=== PATIENT | male | born 1985 | race Two or more races ===

== ENCOUNTER 2018-03-25 21:16 | Emergency (ER) | payer SELFPAY ==
--- NOTE | 2018-03-25 21:49 | EDPHY ---
H & P Stated Complaint: Testicular pain, no troubles urinating, denies unprotected sex Source: Patient Exam Limitations: No limitations - Personal History Current Tetanus Diphtheria and Acellular Pertussis (TDAP): Yes Tetanus Vaccine Date: 2014 - Medical/Surgical History Hx Asthma: No Hx Chronic Respiratory Disease: No Hx Diabetes: No Hx Cardiac Disease: No Hx Renal Disease: No Hx Cirrhosis: No Hx Alcoholism: No Hx HIV/AIDS: No Hx Splenectomy or Spleen Trauma: No Other PMH: Diabetes - Social History Smoking Status: Never smoked Time Seen by Provider: 03/25/18 21:47 HPI/ROS: HPI: This is a 33-year-old male who presents with Chief Complaint: Testicular pain, no troubles urinating, denies unprotected sex Location: Bilateral testicle Quality: Pain Duration: Several days Signs and Symptoms: no fever, no nausea, no vomiting, no hematemesis, no blood in stool, no abdominal bloating, no diarrhea, no back pain, no urinary symptoms , no testicular masses, no indigestion, no chest pain, no shortness of breath Timing: Acute, waxes and wanes Severity: Mild Context: Patient is in a monogamous relationship presents with intermittent bilateral testicle pain that occurs throughout the day. Reports that the pain alternates between the right and left testicle. He denies any injury, trauma. He is urinating without any difficulties. He denies any hematuria, burning with urination. He does report that there is some testicular swelling at the end of the day. He denies unprotected sex or concern for sexually transmitted diseases. No history of hernias. Modifying Factors: None Comment: ROS: see HPI Constitutional: No fever, no chills, no weight loss Eyes: No blurred vision Respiratory: No shortness of breath, no cough Cardiovascular: No chest pain, no palpitations Gastrointestinal: No nausea, no vomiting, no diarrhea, no hematemesis, no blood in stool Genitourinary: No dysuria, no blood in urine Extremities: No myalgias, no edema Neurologic: No weakness, no numbness Skin: No rashes, no petechiae Hematologic: No bruising, no bleeding MEDICAL/SURGICAL/SOCIAL HISTORY: Medical history: Type 2 diabetes mellitus Surgical history: Denies Social history: Never smoked. Family history noncontributory. CONSTITUTIONAL: Over white extremely polite and cooperative male, awake and alert, no obvious distress HEENT: Atraumatic and normocephalic, PERRL, EOMI. Nares patent; no rhinorrhea; no nasal mucosal edema. Tympanic membranes clear. Oropharynx clear, no exudate and moist pink mucosa. Airway patent. No lymphadenopathy. No meningismus. Cardiovascular: Normal S1/S2, tachycardia, regular rhythm, without murmur rub or gallop. PULMONARY/CHEST: Symmetrical and nontender. Clear to auscultation bilaterally. Good air movement. No accessory muscle usage. ABDOMEN: Soft, nondistended, nontender, no rebound, no guarding, no peritoneal signs, no masses or organomegaly. No CVAT. Male : uncircumcised penis, bilateral descended testes, no testicular swelling , no testicular masses, no penile discharge, no lesions, negative Prehn's sign. EXTREMITIES: 2/2 pulses, strength 5/5, no deformities, no clubbing, no cyanosis or edema. NEUROLOGICAL: no focal neuro deficits. GCS 15. SKIN: Warm and dry, no erythema. no rash. Good capillary refill. (Camryn Diop) Constitutional: Initial Vital Signs Temperature (C) 36.7 C 03/25/18 21:20 Heart Rate 106 H 03/25/18 21:20 Respiratory Rate 19 03/25/18 21:20 Blood Pressure 142/101 H 03/25/18 21:20 O2 Sat (%) 97 03/25/18 21:20 O2 Delivery Mode Room Air Allergies/Adverse Reactions: No Known Allergies Allergy (Unverified 03/25/18 21:20) Home Medications: Medication Instructions Recorded Doxycycline Hyclate 100 mg PO BID #20 tablet 03/25/18 Metformin HCl 03/25/18 Medical Decision Making ED Course/Re-evaluation: Vital signs reviewed upon arrival in show mild tachycardia. No systemic signs. Urinalysis and testicular ultrasound ordered. 2244: Urinalysis is completely unremarkable. Called by Radiology who advised that testicular ultrasound shows Mild increased vascularity of the right testicle when compared to the left suggestive of mild orchitis. Patient was given IM 250 mg of ceftriaxone as well as a prepack of doxycycline and a prescription for 10 days. No signs of Selin gangrene/prostatitis/urinary tract infection/testicular torsion. This patient was seen under the supervision of my secondary supervising physician. I evaluated care for this patient independently. Discussed this patient with Dr. Bonilla. (Camryn Diop) I did not see this patient while he was in the emergency department. However his care was discussed with the PA while the patient was in the department. I agree with treatment plan and management (IreneBrock Robles) Differential Diagnosis: Testicular pain including but not limited to epididymitis, orchitis, referred pain from kidney stone, inguinal hernia, and torsion of the testicle. (Camryn Diop) - Data Points Medications Given: Discontinued Medications Ceftriaxone Sodium (Rocephin Im Syringe) 250 mg IM EDNOW ONE PRN Reason: Protocol Stop: 03/25/18 23:14 Last Admin: 03/25/18 23:46 Dose: 250 mg Doxycycline Hyclate (Vibramycin 100 Mg Prepack#2) 1 btl TAKEHOME EDNOW ONE Stop: 03/25/18 23:15 Last Admin: 03/25/18 23:46 Dose: 1 btl Departure - Departure Disposition: Home, Routine, Self-Care Clinical Impression: Orchitis of right testicle Condition: Good Instructions: Orchitis (ED) Additional Instructions: Please take Doxycycline twice a day for the next 10 days. Do not skip a dose. Do not have sexual intercourse for 14 days. You may apply ice packs to your scrotal area several times per day to relieve discomfort. Take Tylenol 650 mg every 4 hours and/or Ibuprofen 600 mg every 8 hours with food as needed for pain. Please follow-up with Urology in 1 week. Return to the ER immediately if you experience new, continued or worsening abdominal pain, fevers/chills, inability to tolerate oral intake, new pain, or any other symptoms that concern you. Referrals: [facility],. [Clinic] - As per Instructions Mateo Castro MD [Medical Doctor] - As per Instructions Prescriptions: Doxycycline Hyclate 100 mg PO BID #20 tablet
[2018-03-25] MEDS ORDERED: DOXYCYCLINE 100 MG PREPACK#2 BTL TAKEHOME ONE (23:14)
[2018-03-26 06:09] VITALS: BP 134/75
== END 2018-03-25 23:48 | disposition home or self-care (01) ==
DX: N45.2 Orchitis (principal); E11.9 Type 2 diabetes mellitus without complications; Z79.84 Long term (current) use of oral hypoglycemic drugs
CPT/HCPCS: J0696

== ENCOUNTER 2018-10-05 18:34 | Emergency (ER) | payer OTHER ==
--- NOTE | 2018-10-05 19:12 | EDPHY ---
H & P Stated Complaint: Laceration to left thumb Time Seen by Provider: 10/05/18 18:59 HPI/ROS: CHIEF COMPLAINT: Laceration HISTORY OF PRESENT ILLNESS: Patient is a 33-year-old man who comes to the emergency depart with laceration to his left thumb. He states that he was chopping [place] belly and accidentally hit his thumb with a knife. He has a J- shaped laceration to the ulnar aspect of the left thumb. It does not involve the nail or nail bed. It is not avulsed. This occurred about 40 min prior to arrival. Severity: Moderate Modifying factors: None REVIEW OF SYSTEMS: Constitutional: denies: chills, fever, recent illness, recent injury EENTM: denies: blurred vision, double vision, nose congestion Respiratory: denies: cough, shortness of breath Cardiac: denies: chest pain, irregular heart rate, lightheadedness, palpitations Gastrointestinal/Abdominal: denies: abdominal pain, diarrhea, nausea, vomiting, blood streaked stools Genitourinary: denies: dysuria, frequency, hematuria, pain Musculoskeletal: denies: joint pain, muscle pain Skin: denies: lesions, rash, jaundice, bruising Neurological: denies: headache, numbness, paresthesia, tingling, dizziness, weakness Hematologic/Lymphatic: denies: blood clots, easy bleeding, easy bruising Immunologic/allergic: denies: HIV/AIDS, transplant 10 systems reviewed and negative except as noted EXAM: GENERAL: Well-appearing, well-nourished and in no acute distress. HEAD: Atraumatic, normocephalic. EYES: Pupils equal round and reactive to light, extraocular movements intact, sclera anicteric, conjunctiva are normal. ENT: TMs normal, nares patent, oropharynx clear without exudates. Moist mucous membranes. NECK: Normal range of motion, supple without lymphadenopathy or JVD. LUNGS: Breath sounds clear to auscultation bilaterally and equal. No wheezes rales or rhonchi. HEART: Regular rate and rhythm without murmurs, rubs or gallops. ABDOMEN: Soft, nontender, normoactive bowel sounds. No guarding, no rebound. No masses appreciated. BACK: No CVA tenderness, no spinal tenderness, step-offs or deformities EXTREMITIES: Normal range of motion, no pitting or edema. No clubbing or cyanosis. NEUROLOGICAL: Cranial nerves II through XII grossly intact. Normal speech, normal gait. 5/5 strength, normal movement in all extremities, normal sensation , normal reflexes PSYCH: Normal mood, normal affect. SKIN: Laceration see above, normal capillary refill. No bony or joint involvement. Source: Patient Exam Limitations: No limitations - Personal History Current Tetanus Diphtheria and Acellular Pertussis (TDAP): Yes Tetanus Vaccine Date: 2014 - Medical/Surgical History Hx Asthma: No Hx Chronic Respiratory Disease: No Hx Diabetes: Yes Hx Cardiac Disease: No Hx Renal Disease: No Hx Cirrhosis: No Hx Alcoholism: No Hx HIV/AIDS: No Hx Splenectomy or Spleen Trauma: No Other PMH: Diabetes. - Family History Significant Family History: No pertinent family hx - Social History Smoking Status: Never smoked Alcohol Use: None Constitutional: Initial Vital Signs Temperature (C) 36.8 C 10/05/18 18:37 Heart Rate 100 10/05/18 18:37 Respiratory Rate 16 10/05/18 18:37 Blood Pressure 142/95 H 10/05/18 18:37 O2 Sat (%) 95 10/05/18 18:37 O2 Delivery Mode Room Air Allergies/Adverse Reactions: No Known Allergies Allergy (Unverified 03/25/18 21:20) Home Medications: Medication Instructions Recorded Metformin HCl 03/25/18 Medical Decision Making Procedures: Procedure: Laceration repair. Verbal consent was obtained from the patient. The 2 cm left laceration was anesthetized with 1% lidocaine digital. The wound was irrigated copiously according to protocol, draped and explored to its base. It was approximately 1/ 2 cm deep. There were no deep structures involved. No tendon, nerve, or vascular injury was identified when explored through full range of motion. No foreign body was identified. The wound was repaired with 6 point, 6 sutures, interrupted. The wound repair was simple without wound margin revisement or multiple flap alignment. The procedure was performed by myself. A dressing was then placed with sterile gauze and bacitracin. ED Course/Re-evaluation: Patient tolerated suture repair. Discussed follow-up. Discussed removal in 10 days. Discussed suture care. Discussed indications for returning sooner. Differential Diagnosis: Partial list of the Differential diagnosis considered include but were not limited to; finger laceration, and although unlikely based on the history and physical exam, I also considered foreign body, bony injury nail bed injury, joint injury. I discussed these differential diagnoses and the plan with the patient as well as the usual and expected course. The patient understands that the diagnosis is provisional and that in medicine we are not always correct and that further workup is often warranted. Usual and customary warnings were given. All of the patient's questions were answered. The patient was instructed to return to the emergency department should the symptoms at all worsen or return, otherwise to followup with the physician as we discussed. Departure - Departure Disposition: Home, Routine, Self-Care Clinical Impression: Laceration Condition: Fair Instructions: Finger Laceration (ED) Additional Instructions: Return to have your stitches removed in 10 days Referrals: NONE *PRIMARY CARE P,. [Primary Care Provider] - As per Instructions Stand Alone Forms: Work Limited Duty
[2018-10-05 19:38] VITALS: BP 125/90
== END 2018-10-05 20:17 | disposition home or self-care (01) ==
PROC: 0HQGXZZ Repair Left Hand Skin, External Approach (ICD-10-PCS; principal; 2018-10-05)
DX: S61.012A Laceration without foreign body of left thumb without damage to nail, initial encounter (principal); W26.0XXA Contact with knife, initial encounter; Y93.G1 Activity, food preparation and clean up